=== PATIENT | female | born 1995 | race Caucasian/White ===

== ENCOUNTER 2022-05-06 02:19 | Emergency (ER) | payer OTHER, SELFPAY ==
--- NOTE | ~2022-05-06 | CT_ITS ---
EXAMINATION: CT HEAD WITHOUT CONTRAST CLINICAL INFORMATION: Headache. COMPARISON: None TECHNIQUE: Contiguous axial imaging was performed from the skull base to vertex without intravenous administration of contrast. This CT examination was performed using dose optimization techniques as appropriate, variously including the following: *Automated exposure control *Adjustment of mA and/or kV according to patient size (this includes techniques or standardized protocols for targeted exams where dose is matched to indication/reason for exam; i.e. extremities or head) *Use of iterative reconstruction technique DLP: 668 mGy-cm FINDINGS: No intracranial hemorrhage, tumors or acute infarcts noted. The ventricles and sulci are normal in size and configuration. No focal parenchymal lesions of the brain identified. Normal appearance of the orbits and globes. No significant opacification of the visualized paranasal sinuses, mastoid air cells and middle ear cavities. CT/CT head/brain wo IV con IMPRESSION: Normal unenhanced CT of the head.
[2022-05-06 02:22] VITALS: BP 138/91; PULSE 101; RESP 18; TEMP 36.8; O2SAT 97; BMI 49.1
[2022-05-06 02:39] LABS: MANUAL DIFF FLAG NO
[2022-05-06 02:40] LABS: Basophils Percent Auto 0.2 % (0-2); Eosinophils Absolute Auto 0.1 X10*3/uL (0.0-0.4); Eosinophils Percent Auto 1.4 % (0-4); Hemoglobin 12.5 g/dl (12.0-16.0); Imm Gran Abs Auto 0.02 X10*3/uL (0.00-0.03); Imm Gran Pct Auto 0.2 % (0.0-0.4); Lymphocytes Absolute Auto 3.7 X10*3/uL (1.2-4.9); Lymphocytes Percent Auto 44.4 % (20-40); Mean Corpuscular HGB Conc 31.3 g/dl (31.0-35.0); Mean Corpuscular Hemoglobin 23.1 pg (27.0-33.0); Mean Corpuscular Volume 73.8 fL (80.0-98.0); Mean Platelet Volume 10.3 fL (9.4-12.3); Monocytes Absolute Auto 0.8 X10*3/uL (0.1-1.2); Monocytes Percent Auto 9.2 % (2-11); Neutrophils Absolute Auto 3.7 x10*3/uL (2.0-8.3); Neutrophils Percent Auto 44.6 % (45-73); Platelet Count 363 X10*3/uL (160-400); Red Blood Count 5.42 X10*6/uL (4.20-5.50); Red Cell Distribution Width 15.9 % (11.0-16.0); White Blood Count 8.3 X10*3/uL (4.8-10.8)
--- OUTSIDE RECORDS SUMMARY | 2022-05-06 02:41 | XMS_ITS | Continuity of Care Document ---
:1995 Author Organization [facility] Address [address] [place] [address]- Care Team Providers Name Role Phone Not on Staff, PCP Primary Care Physician Unavailable Encounter [facility] Date(s): 05/02/21 - 06/25/21 [facility] [address], [place] [address] Attending Physician: Hector Rodriguez MD Admitting Physician: Hector Rodriguez MD Referring Physician: Hector Rodriguez MD Allergies, Adverse Reactions, Alerts No Known Medication Allergies
--- OUTSIDE RECORDS SUMMARY | 2022-05-06 02:41 | XMS_ITS | Continuity of Care Document ---
:1995 Author Organization [facility] Address [address] [place] [address]- Care Team Providers Name Role Phone Not on Staff, PCP Primary Care Physician Unavailable Encounter [facility] Date(s): 03/28/21 - 05/01/21 [facility] [address], [place] [address] Attending Physician: Hector Rodriguez MD Admitting Physician: Hector Rodriguez MD Referring Physician: Hector Rodriguez MD Allergies, Adverse Reactions, Alerts No Known Medication Allergies
[2022-05-06 02:56] VITALS: BP 124/77; PULSE 94; RESP 20
[2022-05-06 02:58] LABS: Anion Gap 13 (12-20); Blood Urea Nitrogen 14 mg/dL (9-16); Calcium 9.5 mg/dL (8.4-10.2); Carbon Dioxide 25 mmol/L (22-29); Chloride 105 mmol/L (96-108); Creatinine Clr Calc Pharmacy 125.3; Estimated Glomerular Filt Rate > 60; Glucose Random 115 mg/dL (60-115); Potassium 4.1 mmol/L (3.3-5.1); Sodium 139 mmol/L (135-145)
[2022-05-06 03:17] LABS: Influenza A PCR NEGATIVE (Negative); Influenza B PCR NEGATIVE (Negative); Resp Syncy Virus RNA Qual PCR NEGATIVE (Negative); SARS COV2 PCR INHOUSE NEGATIVE (Negative)
--- NOTE | 2022-05-06 03:43 | ED_ITS ---
HPI - Headache General Chief Complaint: Headache Stated Complaint: head pain Time Seen by Provider: 05/06/22 02:48 Source: patient Mode of arrival: ambulatory Limitations: no limitations History of Present Illness HPI Narrative: 26-year-old female history of chronic migraines came in for evaluation of migraine for the past 3 months that is not relieving by Excedrin. Patient's headache is constant for the past 4-5 days, no photophobia, no neck stiffness. No family history of intracranial bleed or cerebral aneurysms. Related Data Previous Rx's Medication Instructions Recorded wpbcpwmixt-ddrbbbsnckven-exguvybj 1 cap PO Q8H PRN pain #6 caps 05/06/22 50 mg-300 mg-40 mg capsule (Fioricet) Allergies Allergy/AdvReac Type Severity Reaction Status Date / Time No Known Allergies Allergy Verified 05/06/22 02:27 Review of Systems Review of Systems: All other systems are reviewed and are negative Constitutional: Reports as per HPI and Reports no additional constitutional complaints Eyes: Reports as per HPI and Reports no additional eye complaints Reports system reviewed and no additional complaints, except as documented Cardiovascular: Reports as per HPI and Reports no additional cardiovascular complaints Respiratory: Reports as per HPI and Reports no additional respiratory complaints Gastrointestinal: Reports as per HPI and Reports no additional gastrointestinal complaints Genitourinary: Reports no additional female genitourinary complaints Musculoskeletal: Reports no additional musculoskeletal complaints Skin/Breast: Reports system reviewed and no additional complaints, except as docu Psychiatric: Reports no additional psychiatric complaints Endocrine: Reports no additional endocrine complaints Hematologic/Lymphatic: Reports no additional hematologic/lymphatic complaints Allergic/Immunologic: Reports no additional allergic/immunologic complaints Reports system reviewed and no additional complaints, except as documented and Reports Abnormal speech present [facility], [facility] Social History Social History Alcohol intake: current Alcohol intake frequency: holidays/special occasions only Alcohol type: beer and wine Smoked in Last 30 Days: Yes Use of substances other than those prescribed or required for medical reasons: No Advance Directives: No Advance Directives Information Provided: No Patient : No Physical Exam Vital Signs: Vital Signs: Last Vital Signs Temp 98.7 F 05/06/22 06:28 Pulse 79 05/06/22 06:28 Resp 18 05/06/22 06:28 BP 119/76 05/06/22 06:28 Pulse Ox 96 05/06/22 06:28 O2 Del Method 05/06/22 04:14 BMI result Body Mass Index 49.1 Vital signs have been reviewed as appeared to be correct. Blood pressure normal. Heart rate normal. Respiration rate normal. Temperature normal. Oxygen saturation normal. Appearance: Alert. Oriented X3. No acute distress. Head: Normal external exam. Normocephalic. Atraumatic. No Vega signs noted. No raccoon eyes noted Eyes: PERRLA. EOMI. Conjunctiva and sclera normal. Eyelids normal. ENT: TM's Normal. Pharynx normal. Uvula midline. Moist mucous membranes. No trismus noted. No drooling noted. No muffled voice noted. Neck: Normal inspection. Neck supple. FROM. No adenopathy. Thyroid Normal. No meningeal signs. No neck mass noted. CVS: Normal heart rate and rhythm. Heart sound normal. No murmurs noted. Pulses normal throughout. Respiratory: No respiratory distress. Painless inspiration. Breath sounds normal. No wheezes/rales/rhonchi noted. Chest nontender. No accessory muscle usage noted or decreased air movement noted. Abdomen: Soft and nontender. Bowel sounds normal in all 4 quadrants. No distention noted. No organomegaly noted. No visible injury noted. Back: No CVA tenderness. Full range of motion noted. Skin: Skin warm and dry. Normal skin color. Normal skin turgor. No rashes/lesions/lacerations noted. Extremities: No lower extremity edema. Extremities exhibit normal range of motion. Extremities nontender. Neuro: Oriented X 3. Cranial nerve exam: II-XII are grossly intact No motor deficit. No sensory deficit. Reflexes normal. Course Course Course Narrative: Patient's feels better after was given IV fluids/Benadryl/Zofran. Unremarkable CT of the head and labs are unremarkable will discharge to follow-up with neurologist prescribed Fioricet for the patient. Medications Administered Discontinued Medications Generic Name Dose Route Start Last Admin Trade Name Freq PRN Reason Stop Dose Admin Diphenhydramine HCl 25 mg 05/06/22 03:42 05/06/22 05:39 Diphenhydramine Hcl 50 Mg/Ml Vial IVPUSH 05/06/22 03:43 25 mg ONCE ONE Administration Sodium Chloride 1,000 mls @ 999 mls/hr 05/06/22 03:42 05/06/22 05:39 Ns IV 05/06/22 04:42 999 mls/hr .Q1H1M ONE Administration Ketorolac Tromethamine 30 mg 05/06/22 03:43 05/06/22 05:40 Ketorolac Tromethamine 30 Mg/Ml Vial IVPUSH 05/06/22 03:44 30 mg ONCE ONE Administration Ondansetron HCl 4 mg 05/06/22 03:42 05/06/22 05:40 Ondansetron Hcl 4 Mg/2 Ml Vial IVPUSH 05/06/22 03:43 4 mg ONCE ONE Administration Medical Decision Making Medical Decision Making Differential Diagnoses: Differential diagnosis Differential Diagnosis: The differential diagnosis associated with the patient?s presentation includes: Migraine/headache/intracranial bleed. Lab Attestation: I reviewed the patient's lab results. Discussion of test interpretation with radiology: Discussion of test interpretation with radiology Discussed with radiology regarding test interpretation. Discharge Plan Discharge Clinical Impression: Migraine Patient Disposition: Home, Self-Care Instructions: Migraine Headache (ED) Prescriptions: New vftoxnlfkz-rzvmbrtwytlyk-ansk [Fioricet] 50-300-40 mg capsule 1 cap PO Q8H PRN (Reason: pain) Qty: 6 0RF Referrals: Kinjal Velazquez MD [Primary Care Provider] - Jayde Harrington MD [Physician] - Interventions: ED Discharge Assessment Last Done: 05/06/22 07:16 Discharge Date/Time: 05/06/22 07:18
[2022-05-06 04:14] VITALS: BP 121/76; PULSE 71; RESP 18; TEMP 37; O2SAT 96
[2022-05-06 04:46] LABS: Appearance Urine Clear; Color Urine Yellow; Glucose Urine UA Negative (Negative); Leukocyte Esterase Urine Negative (Negative); Nitrite Urine Negative (Negative); Specific Gravity - Urine >= 1.030 (1.005-1.025); Urine Blood Negative (Negative); Urine Ketones Negative (Negative); Urine Protein Trace mg/dL (Neg-Trace)
[2022-05-06 04:48] LABS: UPreg QC Valid YES; Urine Pregnancy NEGATIVE (NEGATIVE)
[2022-05-06] MEDS: diphenhydrAMINE HCL 50 MG/ML VIAL 25 MG IVPUSH (05:39)
[2022-05-06] MEDS: 0.9 % Sodium Chloride 1,000 ML 999 ML IV (05:39)
[2022-05-06] MEDS: ondansetron HCL 4 MG/2 ML VIAL IVPUSH (05:40)
[2022-05-06] MEDS: Ketorolac Tromethamine 30 MG/ML VIAL IVPUSH (05:40)
[2022-05-06 06:28] VITALS: BP 119/76; PULSE 79; RESP 18; TEMP 37.1; O2SAT 96
== END 2022-05-06 07:18 | disposition home or self-care (01) ==
PROVIDERS: Emergency Provider Emergency Medicine; PCP Internal Medicine
DX: G43.909 Migraine, unspecified, not intractable, without status migrainosus (principal); Z79.899 Other long term (current) drug therapy; Z20.822 Contact with and (suspected) exposure to COVID-19
CPT/HCPCS: 0241U; 36415; 70450; 80048; 81003; 81025; 85025; 96374; 96375; 99284; 99285; J1200; J1885; J2405

== ENCOUNTER 2022-12-07 16:26 | Outpatient (REF) | payer OTHER, SELFPAY ==
[2022-12-07 16:48] LABS: MANUAL DIFF FLAG NO
[2022-12-07 17:26] LABS: Basophils Percent Auto 0.5 % (0-2); Eosinophils Absolute Auto 0.1 X10*3/uL (0.0-0.4); Eosinophils Percent Auto 0.8 % (0-4); Hematocrit 42.6 % (37.0-47.0); Hemoglobin 13.1 g/dl (12.0-16.0); Imm Gran Abs Auto 0.03 X10*3/uL (0.00-0.03); Imm Gran Pct Auto 0.3 % (0.0-0.4); Lymphocytes Absolute Auto 3.2 X10*3/uL (1.2-4.9); Lymphocytes Percent Auto 36.6 % (20-40); Mean Corpuscular HGB Conc 30.8 g/dl (31.0-35.0); Mean Corpuscular Hemoglobin 23.8 pg (27.0-33.0); Mean Corpuscular Volume 77.3 fL (80.0-98.0); Mean Platelet Volume 10.7 fL (9.4-12.3); Monocytes Absolute Auto 0.8 X10*3/uL (0.1-1.2); Monocytes Percent Auto 8.8 % (2-11); Neutrophils Absolute Auto 4.6 x10*3/uL (2.0-8.3); Platelet Count 349 X10*3/uL (160-400); Red Blood Count 5.51 X10*6/uL (4.20-5.50); Red Cell Distribution Width 15.6 % (11.0-16.0); White Blood Count 8.7 X10*3/uL (4.8-10.8)
[2022-12-07 18:12] LABS: Estimated Average Glucose 108 mg/dL; Hemoglobin A1c % 5.4 %
[2022-12-07 22:01] LABS: Alanine Aminotransferase 17 U/L (0-31); Alkaline Phosphatase 76 U/L (39-117); Anion Gap 16 (12-20); Aspartate Amino Transferase 16 U/L (5-31); Bilirubin Total 0.4 mg/dL (0.0-1.0); Blood Urea Nitrogen 12 mg/dL (9-16); Carbon Dioxide 25 mmol/L (22-29); Chloride 104 mmol/L (96-108); Cholesterol 206 mg/dL; Estimated Glomerular Filt Rate > 60; Glucose Random 90 mg/dL (60-115); HDL Cholesterol 36 mg/dL; LDL Cholesterol Calculated 131 mg/dl; Potassium 4.3 mmol/L (3.3-5.1); Sodium 141 mmol/L (135-145); Total Protein 7.8 g/dL (6.5-8.0); Triglycerides 198 mg/dL
[2022-12-07 22:16] LABS: Thyroid Stimulating Hormone 1.01 uIU/mL (0.32-4.0)
== END 2022-12-07 16:27 | disposition home or self-care (01) ==
LOC: HO.LAB 16:26
PROVIDERS: PCP Internal Medicine; Visit Provider Internal Medicine
DX: Z00.00 Encounter for general adult medical examination without abnormal findings (principal); E66.8 Other obesity; F32.9 Major depressive disorder, single episode, unspecified; G47.33 Obstructive sleep apnea (adult) (pediatric); I10 Essential (primary) hypertension; L73.2 Hidradenitis suppurativa
CPT/HCPCS: 36415; 80053; 80061; 83036; 84443; 85025

== ENCOUNTER 2024-06-15 06:55 | Emergency (ER) | payer OTHER, SELFPAY ==
--- NOTE | ~2024-06-15 | XR_ITS ---
CLINICAL HISTORY: Cough, fever 2 view chest x-ray Comparison: None Findings: The lungs are clear. Normal size heart. No acute fracture. IMPRESSION: 1. No acute findings. This document has been electronically signed by: Sofy Lai MD on 06/15/2024 07:28:40
[2024-06-15 06:58] VITALS: BP 155/101; PULSE 76; RESP 16; TEMP 36.5; O2SAT 99; BMI 52.3
[2024-06-15 07:18] LABS: IDNOW Serial# 58CA691E; Strep A Nucleic Acid Negative (Negative)
[2024-06-15 07:50] LABS: Influenza A PCR NEGATIVE (Negative); Influenza B PCR NEGATIVE (Negative); Resp Syncy Virus RNA Qual PCR NEGATIVE (Negative); SARS COV2 PCR INHOUSE NEGATIVE (Negative)
--- NOTE | 2024-06-15 08:54 | ED_ITS ---
HPI - General Adult General Chief complaint: Upper Respiratory Symptoms Stated complaint: flu? Time Seen by Provider: 06/15/24 08:52 Source: patient, family, RN notes reviewed and old records reviewed Mode of arrival: ambulatory Limitations: no limitations History of Present Illness ED Provider: Blanche [facility] narrative: Patient is a 29-year-old female presenting to the emergency department with complaint nasal congestion, sinus pain and pressure, ear pain, sore throat, body aches, cough, chills, headaches which have waxed and waned since May 08. She reports periods were symptoms improve, then return. States and children have been sick with similar symptoms. Denies fevers. Denies chest pain or palpitations. MD complaint: sinus pain, cough Onset (ago): week(s) Related Data Previous Rx's ?Medication ?Instructions ?Recorded xkwwzwizkx-mcgziljvpqkdr-pnupndzj 1 cap PO Q8H PRN pain #6 caps 05/06/22 50 mg-300 mg-40 mg capsule (Fioricet) amoxicillin 875 mg-potassium 1 tab PO BID #14 tabs 06/15/24 clavulanate 125 mg tablet benzonatate 100 mg capsule 100 mg PO TID PRN cough #20 caps 06/15/24 Allergies Allergy/AdvReac Type Severity Reaction Status Date / Time No Known Allergies Allergy Verified 06/15/24 07:01 Review of Systems Review of Systems: As per HPI Yes all other systems are reviewed and are negative Constitutional: Constitutional: Reports as per HPI [facility] Social History Social History Alcohol intake: current Alcohol intake frequency: holidays/special occasions only Alcohol type: beer and wine Advance Directives: No Advance Directives Information Provided: No Physical Exam ED Vital Signs: Vital Signs - 24 hr 06/15/24 06:58 Temperature 97.7 F Pulse Rate 76 Respiratory Rate 16 Blood Pressure 155/101 H Pulse Oximetry 99 Oxygen Delivery Method Room Air BMI result Body Mass Index 52.3 Vital signs have been reviewed and appear to be correct. Blood pressure elevated. Heart rate normal. Respiratory rate normal. Temperature normal. Oxygen saturation normal. Const General: cooperative, healthy appearing and no acute distress Orientation/consciousness: oriented to person, oriented to place, oriented to time and patient oriented x3 Limitations: no limitations HENMT Head: Yes normocephalic and Yes atraumatic Ears: external ears normal, EAC's normal, mastoids normal bilaterally, no periauricular adenopathy and TM abnormal bulging on the right, wth effusion serous bilateral and erythematous on the right General nose exam: Normal external nose present Face and sinus: Yes face symmetric and Yes sinus tenderness (bilateral maxillary) Mouth: Normal oral and palatal mucosa present, lip normal, tongue normal, oropharynx normal and moist mucous membranes Throat: Yes tonsils normal, Yes uvula midline and No peritonsillar mass Eyes Pupils: Equal, round and reactive pupils present Neck Neck: Yes normal visual inspection, Yes no lymphadenopathy and Yes supple Resp Effort & Inspection: normal respiratory effort and able to speak in complete sentences Auscultation: clear to auscultation bilaterally Cardio Rate: regular rate Rhythm: regular rhythm Heart sounds: S1 normal heart sound present and S2 normal heart sound present GI Palpation (GI): Soft to palpation and nontender Auscultation: normoactive bowel sounds General: Yes no CVA tenderness Back/Spine/Pelvis Back: no CVA tenderness Skin General skin exam: elasticity normal and turgor normal Neuro General: oriented to person, oriented to place, oriented to time, patient oriented x3, moves all extremities, no focal motor deficits and CN's II-XI intact bilaterally Cranial nerves: Yes Equal, round and reactive pupils present Cognition (Neuro): normal cognition Extrem General: Yes full ROM, Yes no pedal edema and Yes no calf tenderness Psych Mental Status: mental status grossly normal Affect: normal affect Thought process: Normal thought process present Medical Decision Making Medical Decision Making MDM Narrative: Patient is a 29-year-old female presenting to the emergency department with complaint nasal congestion, sinus pain and pressure, ear pain, sore throat, body aches, cough, chills, headaches which have waxed and waned since May 08. On exam patient is awake, A+Ox3, BP elevated, VS otherwise WNL, afebrile, normal neurological exam without focal deficits, physical exam findings as above. Given reported symptoms and physical exam findings, initial differential includes but is not limited to viral illness, COVID, flu, RSV, bronchitis, pneumonia, otitis media, otitis externa, sinusitis. 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 Strep and viral serology negative. X-ray chest notable for evidence of pneumonia. My interpretation is in agreement with the radiologist's interpretation. Results discussed with patient and all questions answered. Physical exam findings consistent with sinusitis as well as right otitis media. Will treat with Augmentin, benzonatate for cough. Also recommended nasal saline spray, Tylenol, ibuprofen. Follow up with PCP as needed. Return precautions discussed at bedside. Patient verbalized understanding of and agreement with plan. Differential Diagnosis Differential Diagnoses: The differential diagnosis associated with the presentation includes As per [facility] Lab Data [facility] Lab Attestation statement: I reviewed the patient's lab results. As per [facility] Labs: Lab Results 06/15/24 Range/Units 07:04 Influenza Type A (PCR) NEGATIVE (Negative) Influenza Type B (PCR) NEGATIVE (Negative) RSV RNA Qual (PCR) NEGATIVE (Negative) SARS-CoV-2 RNA (RT-PCR) NEGATIVE (Negative) S. pyogenes GrpA HAZEL Negative (Negative) Independent Interpretation I performed an independent interpretation of an: Plain X-Ray Interpretation: No evidence of pneumonia on chest x-ray Radiology Impression Discussion of test interpretation with radiology: I have reviewed the radiologist's reading. Radiologist Impression: Findings: The lungs are clear. Normal size heart. No acute fracture. IMPRESSION: 1. No acute findings. External Record Review External record reviewed: Inpatient record, Office record and Outpatient record Prescription Management I considered prescription management with: Antibiotic and Other Discharge Plan Discharge Clinical Impression: Sinusitis, Otitis media Patient Disposition: Home, Self-Care Instructions: Ear Infection (ED), Rhinosinusitis (DC) Additional Instructions: You were evaluated in the emergency department today for ear pain, sore throat, cough, body aches. You tested negative for Covid, flu, RSV, and strep and your chest x-ray was normal. Your evaluation suggests that your pain is due to an ear and sinus infection. Please take your prescribed antibiotics as directed for the full course of the medication. You can apply warm compresses to the area for 10-15 minutes at a time several times daily. We also recommend that you use over the counter nasal saline spray several times daily to thin secretions and help with drainage. You are being prescribed benzonatate for cough, KEEP THIS OUT OF THE REACH OF CHILDREN. We recommend that you take 650 mg of Tylenol or 600 mg of ibuprofen every 6 hours as needed. If necessary, you can alternate these medications every 3 hours. For example, at 9:00 a.m. take Tylenol, then at noon take ibuprofen, then at 3:00 p.m. take Tylenol, etc.. Please follow up with your primary care provider within two days. Return to the emergency department if you experience hearing loss, discharge from your ear, headaches, fevers, recurrent vomiting, or any other concerning symptoms. Prescriptions: New amoxicillin-pot clavulanate 875-125 mg tablet 1 tab PO BID Qty: 14 0RF benzonatate 100 mg capsule 100 mg PO TID PRN (Reason: cough) Qty: 20 0RF No Action vzzmtpjwzr-vwgpzafubreju-pwis [Fioricet] 50-300-40 mg capsule 1 cap PO Q8H PRN (Reason: pain) Qty: 6 0RF Stand Alone Forms: Work/School Release Print Language: Portuguese
[2024-06-15] MEDS: Ibuprofen 600 MG TABLET PO (09:56)
[2024-06-15] MEDS: Amoxicillin/Potassium Clav 875 MG TABLET PO (09:56)
[2024-06-15 10:13] VITALS: BP 155/101; PULSE 76; RESP 16; TEMP 36.5; O2SAT 99
== END 2024-06-15 10:13 | disposition home or self-care (01) ==
PROVIDERS: Emergency Provider Student in an Organized Health Care Education/Training Program; PCP Internal Medicine
DX: J32.9 Chronic sinusitis, unspecified (principal); H66.93 Otitis media, unspecified, bilateral; R09.81 Nasal congestion; J02.9 Acute pharyngitis, unspecified; M79.10 Myalgia, unspecified site; R51.9 Headache, unspecified; R05.9 Cough, unspecified; Z03.818 Encounter for observation for suspected exposure to other biological agents ruled out
CPT/HCPCS: 0241U; 71046; 87651; 99283; 99284

== ENCOUNTER → 2024-06-15 07:02 | Outpatient (BNV) | payer OTHER, SELFPAY | PROVIDERS: PCP Internal Medicine; Visit Provider Radiology Diagnostic Radiology | DX: R05.9 Cough, unspecified (principal); R50.9 Fever, unspecified | CPT/HCPCS: 71046 ==

== ENCOUNTER 2024-10-04 10:40 | Outpatient (REF) | payer OTHER, SELFPAY ==
[2024-10-04 10:48] LABS: MANUAL DIFF FLAG NO
[2024-10-04 11:51] LABS: Basophils Percent Auto 0.3 % (0-2); Eosinophils Absolute Auto 0.1 X10*3/uL (0.0-0.4); Eosinophils Percent Auto 1.4 % (0-4); Hematocrit 38.7 % (37.0-47.0); Hemoglobin 12.1 g/dl (12.0-16.0); Imm Gran Abs Auto 0.04 X10*3/uL (0.00-0.03); Imm Gran Pct Auto 0.6 % (0.0-0.4); Lymphocytes Absolute Auto 2.8 X10*3/uL (1.2-4.9); Lymphocytes Percent Auto 44.3 % (20-40); Mean Corpuscular HGB Conc 31.3 g/dl (31.0-35.0); Mean Corpuscular Hemoglobin 24.7 pg (27.0-33.0); Mean Corpuscular Volume 79.1 fL (80.0-98.0); Mean Platelet Volume 10.2 fL (9.4-12.3); Monocytes Absolute Auto 0.5 X10*3/uL (0.1-1.2); Monocytes Percent Auto 7.9 % (2-11); Neutrophils Absolute Auto 2.9 x10*3/uL (2.0-8.3); Neutrophils Percent Auto 45.5 % (45-73); Platelet Count 346 X10*3/uL (160-400); Red Blood Count 4.89 X10*6/uL (4.20-5.50); Red Cell Distribution Width 14.6 % (11.0-16.0); White Blood Count 6.3 X10*3/uL (4.8-10.8)
--- OUTSIDE RECORDS SUMMARY | 2024-10-04 11:56 | XMS_ITS ---
Author Organization [address] [id number] Care Team Providers Care Skirt Trimmer Name Role Phone NIKITA HUMPHREY Unavailable [phone] Results Component Value Reference Range Notes Test, Urine Reviewed date:06/26/2024 04:30:52 PM Interpretation:Negative Performing Lab: Notes/Report: Negative Test, Urine neg Lot # [id number] Exp. Date 02/20/2025 REASON FOR VISIT Test Social History Sex Assigned At : Social History Observation Description Sex Assigned At Female Encounters Encounter Location Date Provider Diagnosis [address] [id number] 06/26/2024 NIKITA HUMPHREY Encounter for pregna ncy test, result negative Z32.02 Assessments Encounter Date Diagnosis (ICD Code) Assessment Notes Treatment Notes Treatment Clinical Notes Section Notes 06/26/2024 Encounter for test, result negative (ICD-10 - Z32.02) Discussed control, STI screening, emergency contraception, sexual coercion, family involvement and reproductive life planning. 06/26/2024 Other Plan Of Treatment Treatment Notes Assessment Notes Encounter for test , result negative Discussed control, STI screening, emergency contraception, sexual coercion, family involvement and reproductive life planning. Progress Notes * Isidra RODRIGUEZOB: [birth year] (29 yo F)Acc No.[id number]:06/26/2024 Patient:?Marilyn RODRIGUEZ Provider:SALVATORE HUMPHREY :1995???Age:29 Y???Sex:Female D ate:06/26/2024 Address:[address] [id number] Subjective: * Chief Complaints: * ??? Test * HPI: ???Visit Narrative:?Current form of control:?w/d.?Presenting Symptoms:?missed period, breast tenderness, pelvic cramping.?LMP:?05/13/2024.?Last date of UPI:?06/03/2024.?Other Notes for the Clinician:?Clt states she is two weeks late on her period. Had a negative at-home PT last week and requesting confirmation. Declines GC/CT testing. OB and med AB if positive. Will RTC if menses do not return for further evaluation.? * ROS:?Gastrointestinal:?Denies?Abdominal pain.?Vaginal/Breast/ Control FU:?Denies?Irregular menses.?Denies?Missed period(s).?Denies?Vaginal bleeding between periods.?Genitourinary:?Denies?Frequent urination.?Denies?Painful urination.? * Medical History:? * OB History:?Total pregnancies:?3.?Total living children:?3.? * Surgical History:? * Hospitalization/Major Diagno stic Procedure:? * Social History:?Food Access:?Food Access?The Client's current access to food is?Secure Food Access ???Housing:?Housing?The client's current living situation is:?stable housing ???Reproductive Life Plan:?Reproductive Life Plan?Do you want to have children??No, I don't want to have children ?How sure are you that you will be able to use your control method without any problems??Sure ?People's plans change. Is it possible you or your partner could ever decide to become ??No ???Sexual History:?Sexual History?Sexual History Reviewed:?Partners, Practices, Protection/Past STIs, Prevention of ?Currently sexually active??Yes ?Sexually active with:?Men ?Number of male partners?1 ?Your sexual activities include:?oral intercourse, vaginal intercourse ?Reviewed types of EC??No ?Do you use condoms??No ?Date of last unprotected intercourse:?06/03/2024 ?Number of partners in past 3 months:?1 ?Number of partners in past year:?1 ?What is the client's primary method to prevent at the end of their visit??Withdrawal ?Does your partner(s) currently have any STIs??No ?Completed Gardasil vaccination series??No ???HIV Risk Assessment:?Additional Questions?Is an HIV Risk Assessment being conducted??No ???PrEP for HIV:?PrEP for HIV?Is the client interested in beginning/continuing PrEP for HIV??No ???Relationships:?Relationships?Has the client experienced any of the following:?Client has never experienced harmful relationships ???Human Trafficking:?Human Trafficking?Experienced:?No ???Tobacco Use:?Tobacco Use?Do you/have you used tobacco??Yes, currently occasional cigarette use ?Tobacco Smoking Status?Current some day smoker ???Drugs/Alcohol:?Drug/Alcohol Use?Do you or have you used drugs??No ?Do you or have you used alcohol??Yes, currently social use ???Counseling Provided:?Counseling Provided?Please indicate the length of time, in minutes, that counseling was provided.?8 ?Counseling Was Provided By:?lan * Medications:? Objective: * Vitals:? Assessment: * Assessment: 1.?Encounter for t est, result negative - Z32.02 (Primary)??? Plan: * Treatment: ? Value Reference Range ? Test, Urine neg * ?Lot # [id number] * ?Exp. Date 02/20/2025 Notes:Discussed control, STI screening, emergency contraception, sexual coercion, family involvement and reproductive life planning. ?? * Procedure Codes:?60638 Pregn jessica, Urine * Billing Information: * Visit Code:? * Procedure Codes:? 20616 , Urine. * Sign off status: Completed true * Provider:SALVATORE HUMPHREY Date:?06/26/2024 Generated for Pedro palomino/Beatrice/Jose A on:?10/04/2024 11:56 AM EDT History and Physical Notes * HPI (History of Present Illness) Category Sub-Category Detail Notes Category Not es Visit Narrative Current form of control: w/d Presenting Symptoms: missed period, kas[address] st tenderness, pelvic cramping Other Notes for the Clinician: Clt state s she is two weeks late on her period. Had a negative at-home PT last week and requesting confirmation. Declines GC/CT testing. OB and med AB if positive. Will RTC if menses do not return for further evaluation LMP: 05/13/2024 Last date of UPI: 06/03/2024
--- OUTSIDE RECORDS SUMMARY | 2024-10-04 11:57 | XMS_ITS | Patient Health Record ---
Author Organization [facility] Address [address] [place] [id number] Care Team Providers Care Sewing Machine Mechanic Name Role Phone NIKITA HUMPHREY Unavailable [phone] Results Component Value Reference Range Notes Test, Urine Reviewed date:06/26/2024 04:30:52 PM Interpretation:Negative Performing Lab: Notes/Report: Negative Test, Urine neg Lot # [id number] Exp. Date 02/20/2025 Reason For Referral No Information Social History Sex Assigned At : Social History Observation Description Sex Assigned At Female Encounters Encounter Location Date Provider Diagnosis [facility] [address] [place], [place] [id number] 06/26/2024 NIKITASELMA HUMPHREY Encounter for pregna ncy test, result negative Z32.02 Assessments Encounter Date Diagnosis (ICD Code) Assessment Notes Treatment Notes Treatment Clinical Notes Section Notes 06/26/2024 Encounter for test, result negative (ICD-10 - Z32.02) Discussed control, STI screening, emergency contraception, sexual coercion, family involvement and reproductive life planning. 06/26/2024 Other Plan Of Treatment No Information Insurance Providers Payer Name Payer Address Payer Phone Subscriber Number Group Number Insured Name Patient Relationship to Insured Coverage Start Date Coverage End Date [place] [address] [place] [address] [phone] [id number] Marilyn Olmos Self - patient is the insured
[2024-10-04 12:02] LABS: Estimated Average Glucose 114 mg/dL; Hemoglobin A1C 118.4719 umol/L; Hemoglobin A1c % 5.6 % (<6.0); Total Hemoglobin (HGBA1C) 3173.3452 umol/L
[2024-10-04 12:34] LABS: Alanine Aminotransferase 21 U/L (0-31); Albumin Level 4.1 g/dL (3.5-5.0); Alkaline Phosphatase 78 U/L (39-117); Anion Gap 10 (12-20); Aspartate Amino Transferase 21 U/L (5-31); Bilirubin Total 0.4 mg/dL (0.0-1.0); Blood Urea Nitrogen 15 mg/dL (9-16); Calcium 9.4 mg/dL (8.4-10.2); Carbon Dioxide 27 mmol/L (22-29); Chloride 106 mmol/L (96-108); Cholesterol 180 mg/dL (<200); Estimated Glomerular Filt Rate > 60; Glucose Random 91 mg/dL (60-115); HDL Cholesterol 34 mg/dL (>40); LDL Cholesterol Calculated 120 mg/dL (<100); Potassium 3.4 mmol/L (3.3-5.1); Sodium 140 mmol/L (135-145); Triglycerides 130 mg/dL (<150)
[2024-10-04 12:53] LABS: Thyroid Stimulating Hormone 1.37 uIU/mL (0.32-4.0)
== END 2024-10-04 10:41 | disposition home or self-care (01) ==
LOC: HO.LAB 10:40
PROVIDERS: PCP Internal Medicine; Visit Provider Internal Medicine
DX: E28.2 Polycystic ovarian syndrome (principal); F32.9 Major depressive disorder, single episode, unspecified; F41.8 Other specified anxiety disorders; G47.33 Obstructive sleep apnea (adult) (pediatric); I10 Essential (primary) hypertension
CPT/HCPCS: 36415; 80053; 80061; 83036; 84443; 85025

== ENCOUNTER 2024-12-07 11:00 | Emergency (ER) | payer OTHER, SELFPAY ==
--- NOTE | ~2024-12-07 | XR_ITS ---
EXAMINATION: XR HAND/WRIST, LEFT CLINICAL INFORMATION: pain COMPARISON: None available. TECHNIQUE: PA, lateral, and oblique views of the left hand. 4 views of the left wrist. FINDINGS: No fracture, dislocation, or suspicious bone lesion. There is normal alignment of the hand and wrist. Joint spaces appear preserved. No significant arthropathy evident. Carpal bones intact and normally aligned. No soft tissue abnormalities. XR/XR hand LT min 3V IMPRESSION: Normal radiographs of the hand and wrist. Electronically signed by: Arsenio Ruiz MD 12/07/2024 12:50 PM EDT
--- NOTE | ~2024-12-07 | XR_ITS ---
EXAMINATION: XR HAND/WRIST, LEFT CLINICAL INFORMATION: pain COMPARISON: None available. TECHNIQUE: PA, lateral, and oblique views of the left hand. 4 views of the left wrist. FINDINGS: No fracture, dislocation, or suspicious bone lesion. There is normal alignment of the hand and wrist. Joint spaces appear preserved. No significant arthropathy evident. Carpal bones intact and normally aligned. No soft tissue abnormalities. XR/XR wrist LT min 3V IMPRESSION: Normal radiographs of the hand and wrist. Electronically signed by: Arsenio Ruiz MD 12/07/2024 12:50 PM EDT
[2024-12-07 11:12] VITALS: BP 129/80; PULSE 78; RESP 16; TEMP 36.2; O2SAT 98; BMI 49.1
--- NOTE | 2024-12-07 11:12 | ED_ITS ---
HPI - Extremity Injury (Upper) General Chief Complaint: Extremity Injury, Upper Stated Complaint: l hand pain Time Seen by Provider: 12/07/24 13:59 Source: patient and family Mode of arrival: ambulatory Limitations: no limitations History of Present Illness ED Provider: KARINA HPI narrative: 29 yo female who is R hand dominant here with L wrist and forearm pain x 1 month. 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 She notes it hurts on ulnar aspect of wrist. She has not seen anyone for it. No numbness or weakness. On her middle finger at base of finger she feels a painful hard bone. She has never had this before. MD complaint: injury to: wrist and hand Onset (ago): month(s) (1) Other Extremity Injury: left: fingers and wrist Other injuries: none Handedness: right Place: home Severity: moderate Relieving factors: immobilization Exacerbating factors: movement of extremity Context: other Associated symptoms: denies other symptoms Related Data Previous Rx's ?Medication ?Instructions ?Recorded wlbrzvdxuw-ixsvffwtenhuu-jqapohrq 1 cap PO Q8H PRN everardo n #6 caps 05/06/22 50 mg-300 mg-40 mg capsule (Fioricet) amoxicillin 875 mg-potassium 1 tab PO BID #14 tabs clavulanate 125 mg tablet benzonatate 100 mg capsule 100 mg PO TID PRN cough #20 caps 06/15/24 cyclobenzaprine 10 mg tablet 10 mg PO BID PRN muscle s pasm #14 12/07/24 tabs prednisone 20 mg tablet 40 mg (2 x 20 mg) PO DAILY 5 days 12/07/24 #10 tabs Allergies Allergy/AdvReac Type Severity Reaction Status Date / Time No Known Allergies Allergy Verified 12/07/24 11:13 Review of Systems Review of Systems: Constitutional : No Fever, No Chills Cardiovascular : No Chest Pain, No SOB Musculoskeletal : positive joint pain, No Myalgias, No Joint Swelling Skin : No Skin lacerations, No rash Neuro : No Weakness, No Numbness All other systems reviewed and are negative Yes all other systems are reviewed and are negative FORMERLY [facility], [facility] Past Medical History Attestation statement: The following information was validated with the patient. Source: old records reviewed Medical History No pertinent past medical history Social History Social History (Updated 12/07/24 @ 14:44 by Rosalba Jeffery DO) Alcohol intake: current Alcohol intake frequency: a few times a month Alcohol type: beer and wine Patient Tobacco Use Status: Never used Tobacco Physical Exam Vital Signs: Vital Signs: Last Vital Signs Temp 97.2 F 12/07/24 11:12 Pulse 78 12/07/24 11:12 Resp 16 12/07/24 11:12 BP 129/80 12/07/24 11:12 Pulse Ox 98 12/07/24 11:12 O2 Del Method Room Air 12/07/24 11:12 BMI result Body Mass Index 49.1 Appearance: Alert. Oriented X3. No acute distress. Eyes: Pupils equal, round and reactive to light. ENT: Pharynx normal. Neck: Normal inspection. CVS: . Pulses normal. Respiratory: No respiratory distress. Abdomen: atraumatic Skin: Skin warm and dry. Normal skin color. Extremities: No lower extremity edema. L wrist ttp along lateral aspect of wrist and forearm - no redness, swelling. NV intact, 2+ radial pulse, SILT intact, neg phalen/tinels, + finkelsteins test base of middle finger there is a non mobile ridge felt on the bone itself it is smooth feeling, normal ROM of finger, skin normal Neuro: Oriented X 3. No motor deficit. No sensory deficit. CN2-12 intact Course Course Course Narrative: This is an RME: Additional HPI, ROS, PE not included below will be deferred to primary provider. RME assessment and note performed by: Kaylie Herrera PA-C This is a 1-byee-ooj-female, with a hx of HTN, who presents to the ER with a complaint of left wrist and hand pain x 1 month ago. Reports that her autistic child fell in a street and patient had to pull child up, and next day had pain in her left hand and wrist. She is right hand dominant. No obvious bony deformity or swelling. Strong radial pulse. Plan: xrays, further ER eval needed Medical Decision Making Medical Decision Making MDM Narrative: 29 yo female with no PMH she is R hand dominant here with L wrist/forearm pain and feeling a bump on her L middle finger - xrays ordered. She is NV intact, suspect tendonitis. She will get splint and start on flexeril and prednisone. I did instruct her to monitor the middle finger and to follow up with her PCP if it gets bigger. She will follow up with PCP if not better in one week. Differential Diagnosis Differential Diagnoses: The differential diagnosis associated with the presentation includes tendonitis, strain, carpal tunnel Admission/Observation Consideration of admission/observation: Escalation of care including admission/observation considered Independent Interpretation I performed an independent interpretation of an: Plain X-Ray (normal ) Radiology Impression Discussion of test interpretation with radiology: I have reviewed the radiologist's reading. Independent Historian Clinical information obtained from an independent historian. History obtained from or confirmed by: Parent External Record Review External record reviewed: Outpatient record Prescription Management I considered prescription management with: Pain Medication and Other Procedures Orthopedic Splinting/Casting Injury #1: Side: left Upper Extremity Injury Location: wrist Upper Extremity Immobilizer: wrist splint Additional Comments: NV intact Discharge Plan Discharge Clinical Impression: Left wrist tendonitis Patient Disposition: Home, Self-Care Instructions: Tendinitis (ED) Additional Instructions: xrays normal wear splint for one week limit heavy lifting to 20lbs for 2 weeks follow up with doctor if not better in one week keep splint on but release pressure if hand becomes cold, tingling, blue monitor finger pain for any increase in size of painful area Prescriptions: New cyclobenzaprine 10 mg tablet 10 mg PO BID PRN (Reason: muscle spasm) Qty: 14 0RF prednisone 20 mg tablet 40 mg PO DAILY 5 Days Qty: 10 0RF No Action qfgkmujtlg-xcknuzfichslk-srss [Fioricet] 50-300-40 mg capsule 1 cap PO Q8H PRN (Reason: pain) Qty: 6 0RF amoxicillin-pot clavulanate 875-125 mg tablet 1 tab PO BID Qty: 14 0RF benzonatate 100 mg capsule 100 mg PO TID PRN (Reason: cough) Qty: 20 0RF Print Language: Micronesian
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
--- OUTSIDE RECORDS SUMMARY | 2024-12-07 14:18 | XMS_ITS | Encounter Summary ---
Author Organization [facility] Address [address] [place] [phone] Phone Care Team Providers Care Rubber Off Name Role Phone Ely Braun MD Primary Care Provider Encounter Details Date Type Department Care Team (Late st Contact Info) Description 07/29/2009 Documentation [facility] Family Medicine [address] [place] [address] Family Medicine, Physician [address] [place], [place] [id number] Social History Tobacco Use Types Packs/Day Years Used Date Smoking Tobacco: Never Assessed Comments Unknown Sex and Gender Information Value Date Recorded Sex Assigned at Not on file Legal Sex Female 4:47 PM EDT Gender Identity Not on file Sexual Orientation Not on file documented as of this encounter Plan of Treatment Not on file documented as of this encounter Visit Diagnoses Not on filedocumented in this encounter Care Teams Rubber Off Relationship Specialty Start Date End Date Ely Braun MD [address] [facility] [place] [place] [address] PCP - General 01/08/17 07/16/22 documented as of this encounter
--- OUTSIDE RECORDS SUMMARY | 2024-12-07 14:18 | XMS_ITS | Patient Health Record ---
Author Organization [facility] Address [address] [place] [id number] Care Team Providers Care Strategic Planning Analyst Name Role Phone NIKITA HUMPHREY Unavailable [phone] Results Component Value Reference Range Notes Test, Urine Reviewed date:06/26/2024 04:30:52 PM Interpretation:Negative Performing Lab: Notes/Report: Negative Test, Urine neg Lot # [id number] Exp. Date 02/20/2025 Reason For Referral No Information Social History Sex Assigned At : Social History Observation Description Sex Assigned At Female Encounters Encounter Location Date Provider Diagnosis [facility] [address] [place], [place] [id number] 06/26/2024 NIKITA MILAGRO Encounter for pregna ncy test, result negative [...] Insured Coverage Start Date Coverage End Date ID MEDICAID ATT CLAIMS [address] [place] [id number] Marilyn Olmos Self - patient is the insured
[2024-12-07 14:39] VITALS: BP 129/80; PULSE 78; RESP 16; TEMP 36.2; O2SAT 98
== END 2024-12-07 14:10 | disposition home or self-care (01) ==
PROVIDERS: Emergency Provider Emergency Medicine; PCP Internal Medicine
DX: M77.8 Other enthesopathies, not elsewhere classified (principal); M25.532 Pain in left wrist
CPT/HCPCS: 73110; 73130; 99282; 99283

== ENCOUNTER → 2024-12-07 11:52 | Outpatient (BNV) | payer OTHER, SELFPAY | PROVIDERS: PCP Internal Medicine; Visit Provider Radiology Diagnostic Radiology | DX: M79.642 Pain in left hand (principal); M25.532 Pain in left wrist | CPT/HCPCS: 73110; 73130 ==